=== PATIENT | female | born 1930 | race Caucasian/White ===

== ENCOUNTER 2016-07-10 10:58 | Outpatient (CLI) | payer MEDICARE | END 2016-07-10 10:59 | disposition short-term general hospital (02) | DX: R53.1 Weakness (principal) | CPT/HCPCS: A0170; A0425; A0427 ==

== ENCOUNTER 2016-07-25 08:26 | Outpatient (CLI) | payer MEDICARE | END 2016-07-25 08:27 | disposition EMS.NT | LOC: EMS 08:26 | PROVIDERS: ATTEND Surgery | DX: Z03.89 Encounter for observation for other suspected diseases and conditions ruled out (principal); W18.11XA Fall from or off toilet without subsequent striking against object, initial encounter; Y92.002 Bathroom of unspecified non-institutional (private) residence as the place of occurrence of the external cause ==

== ENCOUNTER 2016-08-17 17:05 | Outpatient (CLI) | payer MEDICARE | END 2016-08-17 17:06 | disposition short-term general hospital (02) | LOC: EMS 17:05 | PROVIDERS: ATTEND Surgery | DX: R53.1 Weakness (principal) | CPT/HCPCS: A0425; A0429 ==